=== PATIENT | female | born 1940 ===

== ENCOUNTER 2017-09-16 10:41 | Day surgery (SDC) | payer OTHER ==
[~2017-09-16 10:41] MED LIST: IRBESARTAN150 MG PO; LANSOPRAZOLE30 MG PO; PROVASTATIN; SYNTHROID175 MCG PO; VERAPAMIL ER240 MG PO; VITAMIN D10000 UNIT PO; VITAMIN E200 UNI6 PO
== END 2017-09-16 20:15 | disposition home or self-care (01) ==
LOC: CIR.AMB 10:41
DX: S32.018A Other fracture of first lumbar vertebra, initial encounter for closed fracture (principal)